=== PATIENT | male | born 1960 | race American Indian/Alaskan Native ===

== ENCOUNTER 2020-05-08 11:51 | Emergency (ER) | payer SELFPAY ==
[2020-05-08 16:19] VITALS: BP 135/78
[2020-05-08] MEDS ORDERED: KETOROLAC 30 MG/1 ML INJ IM ONE (16:19)
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
== END 2020-05-08 17:07 | disposition home or self-care (01) ==
LOC: ED 11:51
DX: M54.2 Cervicalgia (principal); M54.9 Dorsalgia, unspecified; G89.29 Other chronic pain; F17.200 Nicotine dependence, unspecified, uncomplicated; Z79.899 Other long term (current) drug therapy; Z90.49 Acquired absence of other specified parts of digestive tract; Z98.890 Other specified postprocedural states
CPT/HCPCS: 96372; 99282; J1885